=== PATIENT | female | born 1970 | race Caucasian/White ===

== ENCOUNTER 2017-04-13 21:35 | Emergency (ER) | payer OTHER ==
[2017-04-14 00:03] VITALS: BP 145/100
== END 2017-04-14 00:03 | disposition home or self-care (01) ==
LOC: ED 21:35
DX: L50.9 Urticaria, unspecified (principal); R03.0 Elevated blood-pressure reading, without diagnosis of hypertension
CPT/HCPCS: J7512; Q0163